=== PATIENT | female | born 1985 | race Caucasian/White ===

== ENCOUNTER → 2017-07-15 | Outpatient (CLI) | payer BC, OTHER | LOC: OPONC 09:07 → ULTRA 14:29 | DX: R10.2 Pelvic and perineal pain (principal) ==

== ENCOUNTER → 2018-12-10 | Outpatient (CLI) | payer OTHER | LOC: ULTRA 14:30 | DX: N63.10 Unspecified lump in the right breast, unspecified quadrant (principal) ==